=== PATIENT | female | born 1980 | race Caucasian/White ===

== ENCOUNTER 2024-12-23 21:15 | Emergency (ER) | payer MEDICAID ==
[~2024-12-23] VITALS: Ht 167.6 cm; Wt 100.0 kg
[2024-12-23] MEDS: DiphenhydrAMINE HCL 50 MG/ML VIAL IM ONE (21:59)
[2024-12-23] MEDS: LORazepam 2 MG/ML VIAL IM ONE (21:59)
[2024-12-23] MEDS: HALOPERIDOL LACTATE 5 MG/ML VIAL IM ONE ×2 (22:00→22:34)
[2024-12-23 23:28] LABS: BASOPHILS % (AUTO) 0.3 % (0.0-2.0); EOSINOPHILS % (AUTO) 0 % (1.0-6.0); HEMOGLOBIN 14.2 g/dL (12.0-16.0); LYMPHOCYTES # (AUTO) 1.3 K/uL (1.0-4.8); LYMPHOCYTES % (AUTO) 10.8 % (22.0-44.0); MEAN CORPUSCULAR HEMOGLOBIN 30.5 pg (26.0-34.0); MEAN CORPUSCULAR HGB CONC 33.9 G/dL (31.0-37.0); MEAN CORPUSCULAR VOLUME 90 fL (80-100); MONOCYTES # (AUTO) 0.7 K/uL (0.1-1.0); MONOCYTES % (AUTO) 5.4 % (2.0-9.0); NEUTROPHILS # (AUTO) 10.2 K/uL (1.8-7.7); NEUTROPHILS % (AUTO) 83.5 % (40.0-70.0); PLATELET COUNT (AUTO) 244 K/uL (150-450); RED BLOOD CELL COUNT(AUTO) 4.66 MIL/uL (4.00-5.20); RED CELL DISTRIBUTION WIDTH 12.6 % (11.5-14.5); WHITE BLOOD COUNT (AUTO) 12.2 K/uL (4.5-11.0)
[2024-12-23 23:29] LABS: COVID AG,FIA SOURCE NASAL SWAB
[2024-12-23 23:40] LABS: ALCOHOL, BLOOD (SERUM) 71 mg/dL (0-10)
[2024-12-23 23:42] LABS: ANION GAP 23 mmol/L (8-16); CALCIUM, TOTAL 8.8 mg/dL (8.8-10.5); CARBON DIOXIDE 18 mmol/L (22-29); CHLORIDE 94 mmol/L (98-107); CREATININE 0.81 mg/dL (0.60-1.30); GLOMERULAR FILTR. RATE CALC > 60 mL/min (>60); POTASSIUM 3.2 mmol/L (3.5-5.1); SODIUM SERUM 135 mmol/L (136-145); UREA NITROGEN, BLOOD 4 mg/dL (7-18)
[2024-12-23 23:46] LABS: SARS-COV2 (COVID) ANTIGEN,FIA Negative (Negative)
[2024-12-23 23:48] LABS: GLUCOSE,RANDOM 453 mg/dL (70-110)
[2024-12-24] MEDS: SODIUM CHLORIDE 0.9% 1,000 ML IV ONE (00:34)
[2024-12-24] MEDS: INSULIN REGULAR, HUMAN 100 UNITS/ML IVP ONE (00:35)
[2024-12-24 00:49] LABS: ACETONE,BLOOD NEGATIVE (NEGATIVE)
[2024-12-24 01:24] LABS: ALCOHOL, URINE DRUG SCREEN POSITIVE (NEGATIVE); AMPHET/METH SCREEN,URINE NEGATIVE (NEGATIVE); BARBITURATE SCREEN, URINE NEGATIVE (NEGATIVE); BENZODIAZEPINES SCREEN,URINE NEGATIVE (NEGATIVE); CANNABINOID SCREEN,URINE POSITIVE (NEGATIVE); COCAINE SCREEN,URINE NEGATIVE (NEGATIVE); METHADONE SCREEN, URINE NEGATIVE (NEGATIVE); OPIATE SCREEN,URINE NEGATIVE (NEGATIVE); PHENCYCLIDINE SCREEN,URINE NEGATIVE (NEGATIVE)
[2024-12-24 03:10] LABS: ANION GAP 10 mmol/L (8-16); CALCIUM, TOTAL 8.5 mg/dL (8.8-10.5); CARBON DIOXIDE 27 mmol/L (22-29); CHLORIDE 101 mmol/L (98-107); CREATININE 0.69 mg/dL (0.60-1.30); GLOMERULAR FILTR. RATE CALC > 60 mL/min (>60); GLUCOSE,RANDOM 296 mg/dL (70-110); POTASSIUM 3.5 mmol/L (3.5-5.1); SODIUM SERUM 138 mmol/L (136-145); UREA NITROGEN, BLOOD 4 mg/dL (7-18)
[2024-12-24 05:52] VITALS: BP 148/67; PULSE 80; RESP 18; O2SAT 97
[2024-12-24 12:40] LABS: GLUCOMETER DEV NAME(LOC) ER.7; GLUCOSE,POINT OF CARE 425 MG/DL (70-110)
== END 2024-12-24 08:30 | disposition home or self-care (01) ==
LOC: EMS 21:17
DX: F41.9 Anxiety disorder, unspecified (principal); F10.10 Alcohol abuse, uncomplicated; R73.9 Hyperglycemia, unspecified; R44.0 Auditory hallucinations; Z65.3 Problems related to other legal circumstances; Z98.890 Other specified postprocedural states; Z20.822 Contact with and (suspected) exposure to COVID-19; Y90.3 Blood alcohol level of 60-79 mg/100 ml
CPT/HCPCS: 99285; 87426; 80048; 83930; 82009; 82962; 84703; 85025; 96372; 80307; 96374; 96361; 36415; G0480; J1815; J7030